=== PATIENT | male | born 1995 | race American Indian/Alaskan Native ===

== ENCOUNTER 2019-05-29 11:55 | Emergency (ER) | payer OTHER ==
[2019-05-29 12:10] VITALS: BP 125/71
--- NOTE | 2019-05-29 12:12 | Event Note ---
ED Screening Note Date of service: 05/29/19 Time: 12:10 ED Screening Note: 23 y/o female comes in right foot pain and ankle. No trauma. This initial assessment/diagnostic orders/clinical plan/treatment(s) is/are subject to change based on patients health status, clinical progression and re- assessment by fellow clinical providers in the ED. Further treatment and workup at subsequent clinical providers discretion. Patient/guardian urged not to elope from the ED as their condition may be serious if not clinically assessed and managed. Initial orders include:
--- NOTE | 2019-05-29 12:40 | Emergency Department Report ---
ED Extremity Problem HPI - General Chief complaint: Extremity Problem,Nontraumatic Stated complaint: R FOOT/ANKLE PAIN Time Seen by Provider: 05/29/19 12:35 Source: patient Mode of arrival: Wheelchair Limitations: Physical Limitation - History of Present Illness Initial comments: 23 y/o male comes in for right foot and ankle pain times 1 week. Has not taking any pain medications. Patient denies any trauma to his foot or ankle. 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 ) History of Same: Yes Severity scale (0 -10): 10 Quality: aching, sharp Consistency: intermittent Improves with: immobilization, rest Worsens with: weight bearing, walking Associated Symptoms: denies other symptoms - Related Data Previous Rx's Medication Instructions Recorded Last Taken Type Famotidine [Pepcid] 10 mg PO BID #30 tablet 09/14/13 Unknown Rx Omeprazole [PriLOSEC] 20 mg PO QDAY #30 capsule. 09/14/13 Unknown Rx Ibuprofen [Motrin 800 MG tab] 800 mg PO Q8HR PRN #30 tablet 05/29/19 Unknown Rx Allergies Allergy/AdvReac Type Severity Reaction Status Date / Time No Known Allergies Allergy Verified 05/29/19 12:10 ED Review of Systems ROS: Stated complaint: R FOOT/ANKLE PAIN Other details as noted in HPI Comment: All other systems reviewed and negative ED Past Medical Hx - Past Medical History Previous Medical History?: Yes Hx GERD: Yes Additional medical history: Shunt in head since 3 months - Surgical History Past Surgical History?: Yes Additional Surgical History: shunt to head in childhood - Social History Smoking Status: Never Smoker Substance Use Type: None - Medications Home Medications: Home Medications Medication Instructions Recorded Confirmed Last Taken Type Famotidine [Pepcid] 10 mg PO BID #30 tablet 09/14/13 Unknown Rx Omeprazole [PriLOSEC] 20 mg PO QDAY #30 capsule. 09/14/13 Unknown Rx Ibuprofen [Motrin 800 MG tab] 800 mg PO Q8HR PRN #30 tablet 05/29/19 Unknown Rx ED Physical Exam - General Limitations: Physical Limitation General appearance: alert, in no apparent distress, obese - Head Head exam: Present: atraumatic, normocephalic - Eye Eye exam: Present: normal appearance - ENT ENT exam: Present: mucous membranes moist - Neck Neck exam: Present: normal inspection - Respiratory Respiratory exam: Present: normal lung sounds bilaterally. Absent: respiratory distress - Cardiovascular Cardiovascular Exam: Present: regular rate, normal rhythm. Absent: systolic murmur, diastolic murmur, rubs, gallop - Expanded Lower Extremity Exam Right Hip exam: Present: normal inspection, full ROM Upper Leg exam: Present: normal inspection, full ROM Knee exam: Present: normal inspection, full ROM Lower Leg exam: Present: normal inspection, full ROM Ankle exam: Present: normal inspection, full ROM. Absent: tenderness Foot/Toe exam: Present: normal inspection, full ROM, tenderness. Absent: swelling - Neurological Exam Neurological exam: Present: alert, oriented X3 - Psychiatric Psychiatric exam: Present: normal affect, normal mood - Skin Skin exam: Present: warm, dry, intact, normal color. Absent: rash ED Course Vital Signs 05/29/19 12:10 Temperature 97.7 F Pulse Rate 92 H Respiratory 16 Rate Blood Pressure 125/71 [Right] O2 Sat by Pulse 98 Oximetry ED Medical Decision Making - Medical Decision Making Take ibuprofen as needed. . Critical care attestation.: If time is entered above; I have spent that time in minutes in the direct care of this critically ill patient, excluding procedure time. ED Disposition Clinical Impression: Morbid (severe) obesity due to excess calories, Foot pain, right Disposition: [id number] TO HOME OR SELFCARE Is pt being admited?: No Does the pt Need Aspirin: No Condition: Stable Additional Instructions: Take medications as prescribed. Lose weight will help with you extremity pain. Follow up with a Primary Care provider. Prescriptions: Ibuprofen [Motrin 800 MG tab] 800 mg PO Q8HR PRN #30 tablet PRN Reason: Pain , Severe (7-10) Referrals: SANDRA SKAGGS MD [Primary Care Provider] - 3-5 Days Forms: Work/School Release Form(ED)
== END 2019-05-29 12:50 | disposition home or self-care (01) ==
LOC: ED 11:55
DX: M25.571 Pain in right ankle and joints of right foot (principal); E66.01 Morbid (severe) obesity due to excess calories; Z68.45 Body mass index [BMI] 70 or greater, adult
CPT/HCPCS: 99282